=== PATIENT | female | born 1960 | race African-American/Black ===

== ENCOUNTER 2019-03-19 02:30 | Emergency (ER) | payer BC ==
[~2019-03-19] VITALS: Ht 162.6 cm; Wt 48.1 kg
[2019-03-19 02:34] VITALS: BP 151/97
[2019-03-19] MEDS ORDERED: ALBUTEROL SULFATE/IPRATROPIU 3 ML SOL IH ONE (02:50)
[2019-03-19] MEDS ORDERED: KETOROLAC 30 MG/ML VIAL IM ONE (02:50)
--- NOTE | 2019-03-19 03:10 | NUR ---
59 Y/O FEMALE PRESENTS TO ED, C/O GENERAL BODY ACHES 01/28. PT STATES PAIN STARTED LAST FRIDAY AND WORSENING SINCE THEN. PT TAKES ASPIRIN WITH LITTLE OR NO RELIEF. PT DENIES ANY CHEST PAIN. C/O DIFFICULTY BREATHING; WHEEZING ON UPPER LOBES. PT AT STABLE CONDITION. ERMD AWARE. WILL CONTINUE TO MONITOR.
[2019-03-19 03:50] VITALS: BP 153/80
--- NOTE | 2019-03-19 03:50 | NUR ---
PT DISCHARGED WITH PAPERWORK. RX ALBUTEROL AND DICLOFENAC. EDUCATED PT REGARDING MEDICATIONS AND S/E. EDUCATED PT REGARDING D/C DIAGNOSIS AND INSTRUCTIONS. PT VERBALIZED UNDERSTANDING OF TEACHING. TOLD PT TO FOLLOW UP WITH PCP AND WHEN TO RETURN TO ED. PT AT STABLE CONDITION. DENIES ANY DIFFICULTY BREATHING. ALL QUESTIONS ANSWERED.
== END 2019-03-19 03:50 | disposition home or self-care (01) ==
LOC: MED 02:30
DX: M25.551 Pain in right hip (principal); M25.531 Pain in right wrist; M25.511 Pain in right shoulder; J45.909 Unspecified asthma, uncomplicated
CPT/HCPCS: 94640; 96372; 99283; J1885; J7620